=== PATIENT | male | born 1960 | race Caucasian/White ===

== ENCOUNTER → 2016-11-26 | Outpatient (CLI) | payer MEDICARE, OTHER ==
[~2016-11-26] MED LIST: ANUSOL-HC25 MG/SUPP RC; CYCLOBENZAPRINE5 MG PO; DISCONTINUED MED; LORTAB 10-5001 EACH PO; MELOXICAM15 MG PO; MS CONTIN15 MG PO; OMEPRAZOLE40 MG PO; PHENERGAN25 MG PO; ULTRAM PO; ZYRTEC10 M1 PO
--- NOTE | ~2016-11-26 | CT2 ---
[facility] A Service of [facility] RADIOLOGY TEXT RESULTS PATIENT: PIA ENRIQUEZ LOCATION: [facility] : 64 UNIT #: [id number] AGE: [address]: SARIAH HOLCOMB APRN SEX: M ORDER DR: [id number] [facility] [address] [place], [place] [address] [id number] O MR#: [id number] Acc #: [id number] NAME: PIA ENRIQUEZ. : 1960 SEX: M STUDY DATE/TIME: 11/26/2016 10:54 UNIT: [facility] ROOM: STUDY DESCRIPTION: CT Abd and Pelv W Cont Attending Physician: Sariah Holcomb Aprn Referring Physician: Sariah Holcomb Aprn Ordering Physician: Sariah Holcomb Aprn Primary Care Physician: Carmen Victor Aprn MEDICAL IMAGING REPORT This report is preliminary unless electronic signature is present EXAM CT abdomen and pelvis HISTORY Abdominal pain. Right-sided abdomen pain since 2009. Prior history of colorectal cancer, chemotherapy [id number] radiation therapy [id number]. [address] abdomen and pelvis performed with intravenous administration of 100 mL Isovue-370. Enteric contrast not administered. This CT exam was performed with one or more of the following radiation dose reduction techniques: Automatic exposure control, adjustment of mA and/or kV according to patient size, and iterative reconstruction. FINDINGS Emphysema at lung bases. Inferior heart and pericardium unremarkable. Liver, gallbladder, spleen, accessory spleens, pancreas, adrenal glands, kidneys unremarkable. CT PELVIS: No inguinal adenopathy. Urinary bladder normal. No fluid collections in pelvis. No pelvic or retroperitoneal adenopathy. Distal esophagus, stomach, small bowel notable for some fecalization of material in normal caliber distal small bowel. Significance unclear. Certainly, there is no evidence of obstruction. No small bowel inflammatory change is suggested. Questionable visualization of normal appendix. No abnormal appendix is seen. No pericecal inflammatory change. Colon shows a few scattered diverticuli. No evidence of diverticulitis. Mild mural prominence of the rectum with no focal mass lesion seen. Similar appearance on prior examination. This is likely a reflection of the patient's prior interventions. There is no perirectal inflammatory change. No obstruction. The vascular structures show atherosclerotic arterial calcifications. The bony structures show no acute-appearing abnormality. [facility] A Service of [facility] RADIOLOGY TEXT RESULTS PATIENT: PIA ENRIQUEZ LOCATION: [facility] : 64 UNIT #: [id number] AGE: [address]: SARIAH HOLCOMB COMPENSATION ADMINISTRATOR SEX: M ORDER DR: IMPRESSION 1. There is mild mural prominence of the rectum unchanged from 2011 and favored to be a reflection of the patient's prior treatment for reported colorectal malignancy. No focal mass lesion is seen and there is no perirectal inflammatory change. No obstruction. 2. There is fecalization of material in normal caliber distal small bowel. Significance unclear. There is no small bowel dilatation or inflammatory change. Likely, this is a manifestation of delay and small bowel transit. 3. Gallbladder, pancreas unremarkable. 4. Questionable visualization of normal appendix. No abnormal appendix is suggested and there is no pericecal or right lower quadrant inflammatory change. 5. Not mentioned in body of report above, there is an approximately 1 cm cyst in the lower pole of the left kidney. No acute renal findings. 6. Emphysema. Dictated by... Flako Corley M.D. THIS IS AN ELECTRONICALLY VERIFIED REPORT Flako Corley M.D. at 11/28/2016 9:39 PM KRISTINE/rachel TD: 11/27/2016 15:50 JOB #: [id number] MEDICAL IMAGING REPORT Page 1 of 1 COPY
[2016-11-26 15:21] LABS: POC - CREATININE 0.89 mg/dL (0.64-1.27); POC - GFR >60.0 mL/min (>60)
== END | disposition home or self-care (01) ==
LOC: CCAT 11-19 14:00
PROVIDERS: Nurse Practitioner
DX: R10.84 Generalized abdominal pain (principal); N28.1 Cyst of kidney, acquired; J43.9 Emphysema, unspecified
CPT/HCPCS: 74177; 82565; Q9967